=== PATIENT | female | born 1970 | race Caucasian/White ===

== ENCOUNTER → 2018-06-01 | Outpatient (CLI) | payer OTHER ==
[~2018-06-01] MED LIST: ASCO-201 PO; CELE-1 PO; CYAN100T31 PO; IBU200 PO; LISI-355 PO; MAGN30TA5 PO; MULT-1335 PO; PER PO; PYRI50TA88 PO; VENL75CA58 PO
--- NOTE | 2018-06-01 16:33 | RADIOLOGY IMAGING REPORT ---
FACILITY: [facility] PATIENT NAME: CARMEN ALVARADO : [id number] MR: [id number]: [id number] EXAM DATE: [id number] ORDERING PHYSICIAN: MALA CHILDRESS TECHNOLOGIST: Marilou Florez PROCEDURE:BILATERAL DIGITAL SCREENING MAMMOGRAM WITH CAD ASSISTED INTERPRETATION & 3D TOMOSYNTHESIS COMPARISON:Prior mammograms 05/21/17, 05/01/16, 04/04/15, 02/15/13, 07/02/11. INDICATIONS:SCREENING FINDINGS: Small amount of fibroglandular tissue is seen throughout the breasts. The parenchymal pattern has remained stable allowing for difference in mammographic technique & patient positioning. There is no evidence of malignant appearing mass, malignant appearing calcifications or other secondary sign of malignancy in either breast. DIAGNOSTIC CATEGORY 1--NEGATIVE. RECOMMENDATIONS: ROUTINE MAMMOGRAM AND CLINICAL EVALUATION. IMPRESSION: BIRADS 1: Negative. No significant abnormality is seen. Dictated by: Alessandra Guerrero M.D. on 06/01/2018 at 11:26 Transcribed by: [email or web address] on 06/01/2018 at 11:35 Approved by: Alessandra Guerrero M.D. on 06/01/2018 at 16:32 [facility]
== END ==
LOC: MAMO 01:55
PROVIDERS: ATTEND Obstetrics & Gynecology
DX: Z12.31 Encounter for screening mammogram for malignant neoplasm of breast (principal)
CPT/HCPCS: 77063; 77067